=== PATIENT | female | born 1970 | race Caucasian/White ===

== ENCOUNTER → 2020-03-08 14:13 | Outpatient (CLI) | payer OTHER, SELFPAY ==
--- NOTE | ~2020-03-08 | MM_ITS ---
EXAMINATION: MM screening [facility] BI w crispin HISTORY: Screening mammogram TECHNIQUE: Craniocaudal and mediolateral oblique 3-D tomosynthesis images were obtained and synthetic 2-D images were generated. CAD analysis was submitted and interpreted. COMPARISON: 12/09/2018, 10/28/2017, 10/11/2016 BREAST PARENCHYMAL COMPOSITION: The breasts are extremely dense, which lowers the sensitivity of mamm ography. FINDINGS: There is no evidence of suspicious mass, calcification, or architectural distortion to sugg est malignancy in either breast. There has been no suspicious interval change. IMPRESSION: 1. No mammographic evidence of malignancy. 2. Recommend routine screening mammography in one year. BI-RADS Category 1: Negative Reviewed, dictated and finalized at location B.
== END ==
PROVIDERS: PCP Family Medicine; Visit Provider Student in an Organized Health Care Education/Training Program
DX: Z12.31 Encounter for screening mammogram for malignant neoplasm of breast (principal)
CPT/HCPCS: 77063; 77067

== ENCOUNTER → 2021-03-28 16:04 | Outpatient (CLI) | payer OTHER, SELFPAY ==
--- NOTE | ~2021-03-28 | MM_ITS ---
EXAMINATION: MM screening [facility] BI w crispin HISTORY: Screening mammogram TECHNIQUE: Craniocaudal and mediolateral oblique 3-D tomosynthesis images were obtained and synthetic 2-D images were generated. CAD analysis was submitted and interpreted. COMPARISON: 03/08/2020, 12/09/2018, 10/28/2017 BREAST PARENCHYMAL COMPOSITION: The breasts are extremely dense, which lowers the sensitivity of mamm ography. FINDINGS: There is no evidence of suspicious mass, calcification, or architectural distortion to sugg est malignancy in either breast. There has been no suspicious interval change. IMPRESSION: 1. No mammographic evidence of malignancy. 2. Recommend routine screening mammography in one year. BI-RADS Category 1: Negative Reviewed, dictated and finalized at location A.
== END ==
PROVIDERS: PCP Family Medicine; Visit Provider Student in an Organized Health Care Education/Training Program
DX: Z12.31 Encounter for screening mammogram for malignant neoplasm of breast (principal)
CPT/HCPCS: 77063; 77067

== ENCOUNTER 2021-11-24 09:28 | Observation (INO) | payer BC, SELFPAY ==
--- NOTE | ~2021-11-24 | CT_ITS ---
EXAMINATION: CT brain wo con DATE: 11/24/2021 11:46 INDICATION: Head injury. Headache. TECHNIQUE: Computed tomography (CT) of the head was performed without intravenous contrast. The mA wa s adjusted according to patient size. Iterative reconstruction technique was employed. The dose-lengt h product was 605.33 mGy-cm. COMPARISON: None FINDINGS: There is no intracranial hemorrhage, acute infarction, or abnormal intracranial mass lesion . The ventricles are normal in size. The paranasal sinuses are clear. The mastoid air cells are trisha l. There is left scalp soft tissue swelling and hematoma. The underlying bone is normal. The orbits a re normal. IMPRESSION: 1. Normal brain. Reviewed, dictated and finalized at location A. IMPRESSION: 1. Normal brain.
--- NOTE | ~2021-11-24 | CT_ITS ---
EXAMINATION: CT soft tissue neck w con DATE: 11/24/2021 11:46 INDICATION: Head injury. Left head and neck swelling. TECHNIQUE: Computed tomography (CT) of the neck was performed with 75 mL Omnipaque-350 intravenous co ntrast. Automated exposure control and iterative reconstruction technique were employed. The dose-christy gth product was 439.25 mGy-cm. COMPARISON: None FINDINGS: There is fat stranding in the neck on the left. There is swelling of left sternocleidomasto id muscle. There is plaque in the proximal internal carotid arteries with 0% stenosis relative to nor mal distal artery lumen diameters. There are no pathologically enlarged lymph nodes. The pharynx and larynx are normal. The mastoid air cells are normal. There is moderate degenerative disc disease at C 5-C6. IMPRESSION: 1. Left neck soft tissue swelling, consistent with inflammation. No abscess. Reviewed, dictated and finalized at location A.
[2021-11-24 09:33] VITALS: BP 122/50; PULSE 90; RESP 18; TEMP 38.1; O2SAT 100
--- NOTE | 2021-11-24 10:17 | ED.HEATRA ---
HPI - Head Injury General Chief complaint: Head Injury <Do Logan PA-C - Last Filed: 11/24/21 13:38> Stated complaint: head injury <Do Logan PA-C - Last Filed: 11/24/21 13:38> Time Seen by Provider: 11/24/21 09:35 <Do Logan PA-C - Last Filed: 11/24/21 13:38> Source: patient <JOHN Sarmiento Last Filed: 11/24/21 13:38> Mode of arrival: ambulatory <JOHN Sarmiento Last Filed: 11/24/21 13:38> Limitations: no limitations <Do Logan PA-C - Last Filed: 11/24/21 13:38> History of Present Illness HPI Narrative: This is a 51-year-old female that presents to the emergency department for head injury a week ago. Reports she was in [place]. Her friend had been drinking. Her friend was very unsteady on her feet. She was trying to hold her up and she fell causing her to fall as well. She hit her head on the concrete. She did not lose consciousness. She sustained a laceration to her scalp. Over the next couple of days the wound continued to ooze blood. She saw her primary provider 2 days ago who sutured the wound. Reports since she has had the wound sutured she has had pain in this area. Also reports swelling and pain on the left side of her neck. She is not up-to-date on tetanus. Noted to be febrile in the ED, she did not noted any fevers until today. She has had headaches that she has been taking ibuprofen for. Denies vision changes, vomiting, numbness, or weakness. <Do Logan PA-C - Last Filed: 11/24/21 13:38> Related Data Home medications: Home Medications Medication Instructions Recorded Confirmed buspirone 7.5 mg tablet 7.5 mg PO BID 02/20/21 02/20/21 <Do Logan PA-C - Last Filed: 11/24/21 13:38> Allergies/Adverse reactions: Allergies Allergy/AdvReac Type Severity Reaction Status Date / Time No Known Allergies Allergy Unknown Verified 11/24/21 09:41 <Do Logan PA-C - Last Filed: 11/24/21 13:38> Review of Systems Review of Systems: CONSTITUTIONAL: Reports fever EYES: Denies visual changes GASTROINTESTINAL: Denies vomiting MUSCULOSKELETAL: Reports myalgia. NEUROLOGIC: Reports headache. Denies numbness, or weakness. <Do Logan PA-C - Last Filed: 11/24/21 13:38> All systems reviewed & are unremarkable except as noted in HPI and below <oD Logan PA-C - Last Filed: 11/24/21 13:38> PMFSH Past Medical History Medical History: Medical History Chlamydia HSV-1 (herpes simplex virus 1) infection Ovarian cyst rupture Spontaneous Tobacco abuse Ulcer Vaginal delivery x 2 <JOHN Sarmiento Last Filed: 11/24/21 13:38> Surgical History Surgical History: Surgical History History of exploratory laparotomy History of right oophorectomy History of tubal ligation S/P endometrial ablation S/P removal of ovarian cyst <Do Logan PA-C - Last Filed: 11/24/21 13:38> Family History Family History: Family History Father Hypertension Skin cancer Mother Hypertension Bladder cancer Sibling Hypertension <Do Logan PA-C - Last Filed: 11/24/21 13:38> Social History Social History: Social History Smoking status: Current every day smoker Second hand tobacco smoke exposure: No Alcohol intake: current <Do Logan PA-C - Last Filed: 11/24/21 13:38> Exam Narrative: GENERAL: Well-appearing, well-nourished, and in no acute distress. HEAD: Normocephalic. 2cm linear laceration to the left side of the scalp with 4 sutures present, the wound is red and fluctuant EYES: PERRLA and EOMI. ENT: Nares clear, no rhinorrhea or epistaxis. Mucous membranes moist. Oropharynx without tonsillar hypertrophy exudate or ot
[2021-11-24 10:34] LABS: Basophils Percent Auto 0.3 % (0.2-1.2); Eosinophils Percent Auto 0.1 % (0-4.4); Hematocrit 42.3 % (37.0-47.0); Hemoglobin 14.5 g/dL (12.0-15.0); Immature Granulocyte Absolute 0.07 K/mm3 (0.00-0.031); Immature Granulocyte Percent A 0.5 % (0-0.5); Lymphocytes Absolute Auto 0.88 K/mm3 (0.9-3.2); Lymphocytes Percent Auto 6.5 % (18.3-44.2); Mean Corpuscular HGB Conc 34.3 g/dl (32-36); Mean Corpuscular Hemoglobin 31.7 pg (26-34); Mean Corpuscular Volume 92.6 fl (80-100); Mean Platelet Volume 10.1 fl (7.4-10.4); Monocytes Absolute Auto 0.9 K/mm3 (0.1-0.6); Monocytes Percent Auto 6.4 % (2.6-8.5); Neutrophils Absolute Auto 11.6 K/mm3 (1.3-6.7); Neutrophils Percent Auto 86.2 % (45.5-73.1); Platelet Count Result 184 k/mm3 (150-375); Red Blood Count 4.57 M/mm3 (4.2-5.4); Red Cell Distribution Width 12.1 % (11.5-14.5); White Blood Count 13.4 K/mm3 (4.5-10.0)
[2021-11-24] MEDS: TETANUS,DIPHTHERIA,AC PERTUSSIS ADULT (0.5 ML) BOOSTRIX IM (10:41)
[2021-11-24 10:58] LABS: Anion Gap 6 mmol/L (8-16); Blood Urea Nitrogen 9 mg/dL (7-17); Calcium 9.1 mg/dL (8.4-10.2); Carbon Dioxide 26 mmol/L (22-30); Chloride 101 mmol/L (98-107); Estimated CRCL calculation 78 ml/min; Estimated Glomerular Filt Rate > 60; Glucose 110 mg/dL (65-110); Potassium 3.9 mmol/L (3.4-5.0); Sodium 133 mmol/L (137-145)
[2021-11-24 11:06] LABS: CRP 19.1 mg/dL (<1.0); Erythrocyte Sedimentation Rate 60 mm/hr (0-20)
[2021-11-24] MEDS: METOCLOPRAMIDE HCL INJ 10 MG/2 ML VIAL IV PUSH (11:13)
[2021-11-24] MEDS: diphenhydrAMINE HCl INJ 50 MG/ML VIAL 25 MG IV PUSH (11:13)
[2021-11-24] MEDS: SODIUM CHLORIDE 0.9% IV 1,000 ML 999 ML IV CONT (11:13)
[2021-11-24 13:51] VITALS: BP 112/60; PULSE 88; RESP 18; O2SAT 99
[2021-11-24 15:02] VITALS: BMI 23.9
[2021-11-24 15:07] VITALS: BP 119/51; PULSE 77; RESP 16; TEMP 38.1; O2SAT 99
--- NOTE | 2021-11-24 15:18 | PM.IMHP ---
H&P: HPI History of Present Illness Date/Time: 11/24/21 15:18 Chief Complaint: headache after fall and sutures Narrative: 51-year-old female was in [place] 1 week ago. She was assisting and a deviated friend ambulate when the friend lost her balance and both of them fell. The patient hit her head on rock. This cut her head on the left occipital region. [place] The Provider there cleaned the wound and put a bandage on it. That provider recommended she go to the local hospital emergency department however the patient declined. The bleeding gradually abated over the next 5 days. It was more and losing that would diaz her hair. There were no fevers or chills. She did complain of mild imbalance and a bubble sensation in her head as well as mild difficulty focusing mentally. She did not drink anymore during that vacation. When she returned home she saw her primary care provider and the wound was cleaned and sutures were applied. That night after the anesthesia wore off she began having a severe left-sided headache that radiated down into the left neck. The pain intensified over the ensuing 48 hours and she had a low-grade fevers so she presented to the emergency department. There a CT of the head all showed only soft tissue swelling and a CT of the soft tissues of the neck showed no significant abnormality of bone or soft tissue. The sutures were removed and 1 dose of vancomycin was given. She was admitted for further antibiotics and to Determine whether further wound care would be required. Review of Systems Review of Systems: All systems reviewed & are unremarkable except as noted in HPI and below PMFSH Past Medical History Medical History Chlamydia HSV-1 (herpes simplex virus 1) infection Ovarian cyst rupture Spontaneous Tobacco abuse Ulcer Vaginal delivery x 2 Surgical History Surgical History History of exploratory laparotomy History of right oophorectomy History of tubal ligation S/P endometrial ablation S/P removal of ovarian cyst Family History Family History Father Hypertension Skin cancer Mother Hypertension Bladder cancer Sibling Hypertension Social History Social History (Updated 11/24/21 @ 16:05 by Vadim Hernández MD) Smoking packs per day: 1 Smoking cigarettes per day: 20.0 Smoking status: Current every day smoker Tobacco type: cigarettes Second hand tobacco smoke exposure: No Alcohol intake: current Drinks per week: 8 Alcohol use details: About 6 drinks twice per week Substance use: current Substance use type: marijuana Other substance usage details: Once a month Last use: October Living arrangements: with family Additional living arrangements comments: Son lives with her except when he stays with his father. Spiritual care concerns: No Meds Home Medications and Allergies Home Medications Medication Instructions Recorded Confirmed Type buspirone 7.5 mg tablet 7.5 mg PO DAILY 02/20/21 11/24/21 History varenicline [Chantix] 1 mg PO BID 11/24/21 11/24/21 History Allergies Allergy/AdvReac Type Severity Reaction Status Date / Time No Known Allergies Allergy Unknown Verified 11/24/21 09:41 Vital Signs Vital Signs - 24 hr 11/24/21 09:33 11/24/21 13:51 11/24/21 15:07 Temperature 100.6 F H 100.6 F H Pulse Rate 90 88 77 Respiratory Rate 18 18 16 Blood Pressure 122/50 L 112/60 119/51 L Pulse Oximetry 100 99 99 Exam Narrative: HEENT: EOMI, PERRL, sclerae nonicteric, pharyngeal mucosa pink and intact NECK: No JVD, adenopathy, or thyromegaly CHEST: Clear to auscultation. Normal effort. HEART: NL S1/S2, regular, no murmur ABDOMEN: BS+, soft, nontender, no mass, no bruits EXTREMITIES: No cyanosis, edema, or clubbing
[2021-11-24] MEDS: ACETAMINOPHEN 325 MG TABLET 650 MG PO (16:19)
[2021-11-24] MEDS: SODIUM CHLORIDE 0.9% IV 250 ML 50 ML (16:32)
[2021-11-24] MEDS: VARENICLINE 1 MG TABLET PO (16:36)
--- NOTE | 2021-11-24 16:43 | ADMGEN ---
This patient, Savannah Dickinson, was admitted to Medical Room 349-01. Patient/family oriented to hospital policies and general routines including ID bracelet, bed and alarms, visiting hours, pain management, procedures, bathroom and other care routines, personal items, smoking policy, room service/diet, and visiting hours. Information on how to activate the Rapid Response Team has been discussed. Patient/Family are encouraged to report perceived risks to care and to ask questions if they do not understand what they are told or what they should do.
[2021-11-24] MEDS: HYDROcodone/acetaminophen (*CRX) 5-325 MG TABLET 1 TAB PO (22:31)
[2021-11-25 00:22] VITALS: BP 101/51; PULSE 86; RESP 16; TEMP 37.9; O2SAT 95
[2021-11-25 00:27] VITALS: TEMP 37.9
[2021-11-25] MEDS: ACETAMINOPHEN 325 MG TABLET 650 MG PO (00:27)
[2021-11-25 04:18] VITALS: BP 107/56; PULSE 75; RESP 16; TEMP 37.3; O2SAT 98
[2021-11-25 05:24] LABS: Hematocrit 39.4 % (37.0-47.0); Hemoglobin 13.4 g/dL (12.0-15.0); Mean Corpuscular Hemoglobin 31.5 pg (26-34); Mean Corpuscular Volume 92.5 fl (80-100); Mean Platelet Volume 10.1 fl (7.4-10.4); Platelet Count Result 174 k/mm3 (150-375); Red Blood Count 4.26 M/mm3 (4.2-5.4); Red Cell Distribution Width 11.9 % (11.5-14.5); White Blood Count 10.6 K/mm3 (4.5-10.0)
[2021-11-25 05:39] LABS: Anion Gap 5 mmol/L (8-16); Blood Urea Nitrogen 9 mg/dL (7-17); Calcium 8.7 mg/dL (8.4-10.2); Carbon Dioxide 29 mmol/L (22-30); Chloride 102 mmol/L (98-107); Estimated CRCL calculation 78 ml/min; Estimated Glomerular Filt Rate > 60; Glucose 99 mg/dL (65-110); Potassium 3.5 mmol/L (3.4-5.0); Sodium 136 mmol/L (137-145)
[2021-11-25 05:54] LABS: CRP 22.8 mg/dL (<1.0)
[2021-11-25 08:00] VITALS: PULSE 75; RESP 16; O2SAT 98
[2021-11-25] MEDS: busPIRone HCL 5 MG TABLET PO (08:09)
[2021-11-25] MEDS: busPIRone HCL 2.5 MG TABLET PO (08:10)
[2021-11-25] MEDS: VARENICLINE 1 MG TABLET PO (08:10)
--- NOTE | 2021-11-25 10:29 | PM.CNGS ---
Assessment and Plan Assessment and plan (1) Laceration of scalp with delay in treatment: Onset Date: ~11/2021 Code(s): S01.01XD - Laceration without foreign body of scalp, subsequent encounter Status: Acute Assessment and Plan: At this time I have gently debrided the scab overlying her hematoma/ wound abscess. Culture has been taken and sent for Gram stain and C&S. Patient needs b.i.d. wound care with use of Bactroban ointment in case it is MRSA. Most likely will be a strep or staph infection. There is about a 2 mL cavity underneath the area of the previous wound that had pus in it. This is been cleaned out now and we will ask her to shower it twice a day then apply the Bactroban ointment she can comb her hair over it then. We will let this heal in by secondary intention to help avoid spreading of the infection. She could clean it with peroxide prior to each shower using a little Q-tip to go into the opening which is about a 1 cm diameter opening at this time. (2) Complicated wound infection: Code(s): T14.8XXA - Other injury of unspecified body region, initial encounter; L08.9 - Local infection of the skin and subcutaneous tissue, unspecified Status: Acute Assessment and Plan: Wound now opened most likely she will continue to gradually improve. One or 2 more doses of IV antibiotics followed by a approximate 5 day course of oral antibiotics may be appropriate. I will follow her up in the office for wound care. I have discussed with her plans for the wound care with b.i.d. re-application of Bactroban ointment over the area of the wound and frequent cleansing. Also, encouraged her to stop smoking or minimize it for improved healing. Patient seemed understand wished to proceed I will watch for the culture and call her to change antibiotics to cover MRSA if it ends up being that. For now I believe continuation of the cephalosporin with Keflex 500 q.6 hours would be appropriate. (3) Tobacco abuse: Code(s): Z72.0 - Tobacco use Status: Acute Assessment and Plan: Encouraged her to minimize this as much as possible while healing and then shoot for cessation. History of Present Illness Consult details Consult date: 11/25/21 Requesting physician: Vadim Hernández MD Narrative: This is a pleasant 51-year-old White female that presented on 11/25 to the [facility] emergency department for head injury a week ago. Reports she was in [place] and her friend had been drinking. Her friend was very unsteady on her feet. She was trying to help hold her up and the friend fell causing the patient to fall as well. She hit her head on some concrete. She did not lose consciousness. She sustained a laceration to her left parietal scalp. Over the next couple of days the wound continued to ooze blood. She saw her primary provider on 11/23 who then sutured the wound.( pt describes that they said they would make a cut around it and then suture it . She reports that since she has had the wound sutured she has had pain in this area. Also, she reports swelling and pain on the left side of her neck. She is not up-to-date on tetanus. Noted to be febrile in the ED, she did not note any fevers until 11/25. She has had headaches ever since the initial fall that she has been taking ibuprofen for. Denies vision changes, vomiting, numbness, or weakness. W/U in the ED revealed a hematoma in the area of the wound by head CT, but no intracranial abnormality. The sutures were appropriately removed so that the wound could drain and a soft tissue CT of the neck showed some swelling but no abscess. IV antibiotics were started and I was asked to check the wound and provide recommendations for ongoing wound care. Review of Systems Review of Systems: All systems reviewed & are unremarkable except as noted in HPI and below (HPI) Constitutional: Constitutional: Reports as per HPI, Denies chills and Denies fever(s) Eyes
[2021-11-25] MEDS: SODIUM CHLORIDE 0.9% IV 250 ML 50 ML (11:20)
--- NOTE | 2021-11-25 12:28 | PM.DS ---
DS: Admitting Diagnosis Discharge Date PATIENT WAS SEEN AND EXAMINED 11/25/2021 Admitting Diagnosis WOUND INFECTION OF SCALP DS: Discharge Diagnosis Discharge Diagnosis (1) Complicated wound infection: Code(s): T14.8XXA - Other injury of unspecified body region, initial encounter; L08.9 - Local infection of the skin and subcutaneous tissue, unspecified Status: Acute Assessment and Plan: Cefazolin 1gm iv q 8 hr overnight Then cephalexin 500mg PO QID x 5 days along with topical bacitracin Wound was debrided by Dr. 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 Approximately 5 days later she saw primary care provider and wound was sutured. Approximately 2 days later she had increased swelling at the suture site as well as pain that radiated down the left neck. Soft tissue CT of the neck showed only soft tissue swelling with no abscess. CT of the brain showed the laceration with some swelling but no intracranial injury. Patient was treated with 1 dose of IV vancomycin and cefazolin 1 g IV q.8 hours. Her wound was debrided on 11/25 by surgical service. Her headache had resolved. She had only mild left neck tenderness. She was discharged home to be follow up as an outpatient. No she did receive a tetanus booster in the emergency department. Time Spent with Patient Time attestation: Total time spent providing and/or coordinating discharge services: Exam Narrative: HEENT: EOMI, PERRL, sclerae nonicteric, pharyngeal mucosa pink and intact, left TM slightly cloudy but landmarks easily visualized NECK: No JVD, adenopathy, or thyromegaly. MILD TENDERNESS TO PALPATION ALONG THE SCM CHEST: Clear to auscultation. Normal effort. HEART: NL S1/S2, regular, no murmur ABDOMEN: BS+, soft, nontender, no mass, no bruits EXTREMITIES: No cyanosis, edema, or clubbing NEUROLOGIC: CN intact and symmetric to inspection. MUSCULOSKELETAL: Tone and strength symmetric. PSYCH: Alert. Oriented to person, place, and time. SKIN: LEFT OCCIPITAL SCALP WOUND WITH DRIED BLOOD, ABOUT 3CM, WITH SURROUNDING ERYTHEMA, WARMTH, TENDERNESS DS: Data Data Completed and Pending Labs on day of discharge: Labs from last 24 hours 11/25/21 11/25/21 05:13 05:13 WBC 10.6 H RBC 4.26 Hgb 13.4 Hct 39.4 MCV 92.5 MCH 31.5 MCHC 34.0 RDW 11.9 Plt Count 174 MPV 10.1 Sodium 136 L Potassium 3.5 Chloride 102 Carbon Dioxide 29 Anion Gap 5 L BUN 9 Creatinine 0.70 Estim Creat Clear Calc 78 Estimated GFR > 60 Glucose 99 Calcium 8.7 C-Reactive Protein 22.8 H Preliminary micro results at discharge 11/24/21 10:25 Blood Culture - Preliminary Blood 11/24/21 10:25 Blood Culture - Preliminary Blood Discharge Plan Discharge Discharging Clinician: Vadim Hernández Patient Disposition: Home, Self-Care Activity: may shower and no straining Diet: regular Patient Instructions: Antibiotic Form, How to Stop Smoking (GEN) Stand Alone Forms: General Discharge Information, Work/School Rel
== END 2021-11-25 13:30 | disposition home or self-care (01) ==
LOC: ANHED 13:38 → ANH3MED 13:51
PROVIDERS: Physician Assistant; Admitting Provider Internal Medicine; Emergency Provider Emergency Medicine; PCP Family Medicine; Visit Provider Internal Medicine
DX: S01.01XD Laceration without foreign body of scalp, subsequent encounter (principal); L08.9 Local infection of the skin and subcutaneous tissue, unspecified; F12.90 Cannabis use, unspecified, uncomplicated; Z87.891 Personal history of nicotine dependence; W01.0XXD Fall on same level from slipping, tripping and stumbling without subsequent striking against object, subsequent encounter; Z23 Encounter for immunization
CPT/HCPCS: 36415; 70450; 70491; 80048; 85025; 85027; 85652; 86140; 87040; 87070; 87075; 87076; 87147; 87186; 87205; 90471; 90715; 96365; 96366; 96367; 96375; 96376; 99285; A9270; G0378; J0131; J0690; J1200; J2765; J3370; J7030; J7050; Q9967

== ENCOUNTER 2022-11-05 08:50 | Emergency (ER) | payer BC, SELFPAY ==
--- NOTE | ~2022-11-05 | XR_ITS ---
AP view of the pelvis and AP and lateral views of the left hip Clinical history: Pain Findings: No acute fracture or dislocation is seen. Osseous alignment is anatomic. Bilateral hip and SI joint spaces are preserved. Soft tissues are unremarkable. Impression: No significant abnormality is seen. Reviewed, dictated and finalized at [facility]. Impression: No significant abnormality is seen.
--- NOTE | ~2022-11-05 | XR_ITS ---
Lumbosacral Spine: AP and lateral views Clinical History: Pain Findings: The normal lordotic curve is maintained. The vertebral bodies and posterior elements are i ntact. The intervertebral disc spaces are preserved. There is mild facet arthropathy at L4-L5 and L5 -S1. The sacroiliac joints are normally outlined. Impression: Minimal degenerative change, as above. Reviewed, dictated and finalized at location . Impression: Minimal degenerative change, as above.
--- NOTE | ~2022-11-05 | XR_ITS ---
XR thoracic spine 3V DATE: 11/05/2022 10:19 INDICATION: Fall. Low back and hip pain. TECHNIQUE: AP, lateral and swimmer views of thoracic spine COMPARISON: None FINDINGS: No fracture or dislocation or bone destruction is detected. The thoracic pedicles are intac t. No paraspinal soft tissue thickening. IMPRESSION: No significant abnormality Reviewed, dictated and finalized at location L. IMPRESSION: No significant abnormality
[2022-11-05 09:09] VITALS: BP 101/55; PULSE 63; RESP 12; TEMP 36.6; O2SAT 98
--- NOTE | 2022-11-05 09:10 | ED.FALL ---
HPI - Fall General Chief Complaint: Extremity Injury, Lower Stated Complaint: Left Back/Hip Pain Time Seen by Provider: 11/05/22 08:53 Source: patient Mode of arrival: ambulatory Limitations: no limitations History of Present Illness HPI Narrative: Savannah is a 52-year-old female patient presenting to the clinic today with complaints of left hip, midback, and low back pain after falling on Friday. She reports that she was stepping onto a milk crate when it gave out and she fell. States she is having sharp pain upon moving her back and hip. States it is hard for her to raise her left leg up due to the pain. She is able to walk but is limping. Has been taking ibuprofen as needed for pain and this has been helping. Related Data Home Medications Medication Instructions Recorded Confirmed lactobacillus combination no.9 4 4,000 mmu cells PO DAILY 06/12/22 billion cell capsule (Adult 50 Plus Probiotic) lysine 600 mg tablet 600 mg PO DAILY 06/12/22 multivitamin (Daily Multi-Vitamin 1 tablet PO DAILY 06/12/22 tablet) omeprazole 40 mg capsule,delayed 40 mg PO DAILY 06/12/22 release tumeric 100 mg-shine 150 mg-olive cap PO 06/12/22 50 mg-oreg 150 mg-caprylate capsule vitamin B complex (B 1 tablet PO DAILY 06/12/22 Complex-Vitamin B12 tablet) Allergies Allergy/AdvReac Type Severity Reaction Status Date / Time No Known Allergies Allergy Unknown Verified 11/05/22 09:53 Review of Systems Review of Systems: Pertinent positives per HPI. Patient denies any fever, chills, rash, headache, visual changes, dizziness, cough, runny nose, sore throat, shortness of breath, chest pain, palpitations, nausea, vomiting, diarrhea, constipation, abdominal pain, or any urinary issues. [facility] Past Medical History Medical History Chlamydia History of MRSA infection HSV-1 (herpes simplex virus 1) infection Laceration of scalp with delay in treatment (~11/2021) Ovarian cyst rupture Spontaneous Tobacco abuse Ulcer Vaginal delivery x 2 Surgical History Surgical History History of exploratory laparotomy History of right oophorectomy History of tubal ligation S/P endometrial ablation S/P removal of ovarian cyst Family History Family History Father Hypertension Skin cancer Mother Hypertension Bladder cancer Sibling Hypertension Social History Social History Smoking packs per day: 1 Smoking cigarettes per day: 20.0 Smoking status: Current every day smoker Tobacco type: cigarettes Second hand tobacco smoke exposure: No Alcohol intake: current Drinks per week: 8 Alcohol use details: About 6 drinks twice per week Substance use: current Substance use type: marijuana Other substance usage details: Once a month Last use: October Lack of Transportation: No Lack of Food: Never True Current Housing: I Do Not Have Housing Concerned About Future Housing: No Difficulty Paying Gas/Electric Bills: No Difficulty Paying for Meds: No Currently Unemployed: No Education: High School Diploma/GED Difficulty w/ Childcare or Family Care: No Living arrangements: with family Additional living arrangements comments: Son lives with her except when he stays with his father. Gender identity (if verbalized by the patient): Female Sexual Orientation (if Verbalized by the Patient): Straight or Heterosexual Spiritual care concerns: No Comments At the time of my signature, I reviewed and agree with the nursing past medical, surgical, social, and family history. There is no relevant family history pertinent to the patient complaint. Exam Narrative: General: Well-developed, well nourished, in no apparent distress Head: Normocephalic, a
[2022-11-05] MEDS: KETOROLAC (*BKC) 60 MG/2 ML VIAL IM (10:44)
== END 2022-11-05 11:05 | disposition home or self-care (01) ==
PROVIDERS: Emergency Provider Nurse Practitioner Family
DX: M54.6 Pain in thoracic spine (principal); M25.552 Pain in left hip; W17.89XA Other fall from one level to another, initial encounter; F17.210 Nicotine dependence, cigarettes, uncomplicated; F12.90 Cannabis use, unspecified, uncomplicated; Z86.14 Personal history of Methicillin resistant Staphylococcus aureus infection
CPT/HCPCS: 72072; 72100; 73502; 96372; 99214; G0463; J1885

== ENCOUNTER 2023-09-17 16:14 | Outpatient (CLI) | payer BC, SELFPAY ==
[2023-09-17 16:40] LABS: Hematocrit 44.7 % (37.0-47.0); Hemoglobin 14.8 g/dL (12.0-15.0); Mean Corpuscular HGB Conc 33.1 g/dl (32-36); Mean Corpuscular Hemoglobin 30.1 pg (26-34); Mean Platelet Volume 10.6 fl (7.4-10.4); Platelet Count Result 214 k/mm3 (150-375); Red Blood Count 4.91 M/mm3 (4.2-5.4); Red Cell Distribution Width 11.9 % (11.5-14.5); White Blood Count 6.9 K/mm3 (4.5-10.0)
[2023-09-17 17:29] LABS: Appearance Urine Clear (Clear); Bilirubin Urine Negative (Negative); Blood Urine Negative (Negative); Color Urine Yellow (Yellow); Glucose Urine UA Negative (Negative); Ketones Urine Negative (Negative); Leukocyte Esterase Ur Negative LEU/UL (Negative); Nitrate Urine Negative (Negative); Protein Urine Negative (Negative); Specific Grav Ur 1.007 (1.001-1.035); Urobilinogen Urine 0.2 mg/dL (<2.0); pH Urine 5.5 (5.0-9.0)
[2023-09-17 17:40] LABS: Alanine Aminotransferase 13 U/L (6-35); Albumin Level 4.2 g/dL (3.5-5.1); Alkaline Phosphatase 50 U/L (38-126); Anion Gap 7 mmol/L (8-16); Aspartate Amino Transferase 23 U/L (14-36); Bilirubin,Total 0.5 mg/dL (0.2-1.3); Blood Urea Nitrogen 10 mg/dL (7-17); Calcium 9.1 mg/dL (8.4-10.2); Carbon Dioxide 29 mmol/L (22-30); Chloride 106 mmol/L (98-107); Cholesterol 199 mg/dL (0-200); Estimated Glomerular Filt Rate > 60; Glucose 138 mg/dL (65-110); HDL Direct 55 mg/dL; Potassium 3.5 mmol/L (3.4-5.0); Sodium 142 mmol/L (137-145); Triglycerides 122 mg/dL (<150); Vitamin D 25 Hydroxy 42.3 ng/mL
[2023-09-17 17:45] LABS: Add Urine Microscopic? NO
[2023-09-17 17:51] LABS: LDL Cholesterol Direct 112 mg/dL
== END 2023-09-17 16:15 | disposition home or self-care (01) ==
LOC: ANHLAB 16:15
PROVIDERS: Visit Provider Registered Nurse
DX: Z79.899 Other long term (current) drug therapy (principal)
CPT/HCPCS: 36415; 80053; 80061; 81003; 82306; 84443; 85027